=== PATIENT | male | born 1995 | race Hispanic/Latino ===

== ENCOUNTER 2022-01-14 17:03 | Emergency (ER) | payer BC ==
[2022-01-14] MEDS ORDERED: ACETAMINOPHEN 500 MG TAB PO ONE (20:04)
--- NOTE | 2022-01-14 20:58 | XRay Report ---
CHEST 2 VIEWS INDICATION / CLINICAL INFORMATION: Chest Pain. COMPARISON: None available. FINDINGS: SUPPORT DEVICES: None. HEART / MEDIASTINUM: No significant abnormality. LUNGS / PLEURA: No significant pulmonary or pleural abnormality. No pneumothorax. ADDITIONAL FINDINGS: No significant additional findings. IMPRESSION: 1. No acute findings. Signer Name: Marcelo Kerr MD Signed: 01/14/2022 8:53 PM Workstation Name: [email or web address]
[2022-01-14 23:03] LABS: Basophils % (Auto) 0.5 % (0.0-1.8); Eosinophils % (Auto) 0.7 % (0.0-4.3); Hematocrit 46.3 % (35.5-45.6); Hemoglobin 15.5 gm/dl (11.8-15.2); Lymphocytes # (Auto) 0.8 K/mm3 (1.2-5.4); Lymphocytes % (Auto) 12.7 % (13.4-35.0); Mean Corpuscular HGB Conc 33 % (32-34); Mean Corpuscular Volume 87 fl (84-94); Monocytes # (Auto) 0.8 K/mm3 (0.0-0.8); Monocytes % (Auto) 12.7 % (0.0-7.3); Platelet Count 164 K/mm3 (140-440); Red Blood Count 5.31 M/mm3 (3.65-5.03); Red Cell Distribution Width 13.6 % (13.2-15.2)
[2022-01-14 23:12] LABS: BUN/Creatinine Ratio 11; Blood Urea Nitrogen 14 mg/dL (9-20); Calcium 9.5 mg/dL (8.4-10.2); Hemolysis Index 8
--- NOTE | 2022-01-15 07:11 | Event Note ---
ED Screening Note ED Screening Note: 26-year-old male with no significant past medical history presents emerged department complaining of a few day history of waxing and waning fever sensations of associated with lightheadedness and presyncope. 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 He left work and went to [facility] care where he was found to reportedly have a fever which is undocumented associated with tachycardia presyncope and infectious symptom history COVID test was performed was reportedly negative. A chest x-ray was also performed in conjunction with labs however the results are unfounded. He was advised to come to the emergency department to seek definitive treatment for his tachycardia and syncope and possible COVID. This initial assessment/diagnostic orders/clinical plan/treatment(s) is/are subject to change based on patients health status, clinical progression and re- assessment by fellow clinical providers in the ED. Further treatment and workup at subsequent clinical providers discretion. Patient/guardian urged not to elope from the ED as their condition may be serious if not clinically assessed and managed. Initial orders include: D-dimer was elevated which was was ordered prior to my involvement due to this elevation in symptoms we will do a CTA of the chest
--- NOTE | 2022-01-15 08:13 | Emergency Department Report ---
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 However while at work patient had a syncope episode, he was sent to [facility], patient had a fever at the time, sent for COVID which is negative as well as a chest x-ray which was also negative, was told to go to the emergency department for his tachycardia found on EKG and syncope. Patient states he recalls an incident that occurred before and after his syncope episode, reports feeling dizzy with a headache, and also chest pain prior to him passing out. He denies any drug or alcohol use, no shortness of breath, no swelling of the extremities, no vision changes, no focal weakness, no nausea vomiting abdominal pain, no dysuria, no runny nose Severity scale (0 -10): 8 - Related Data Previous Rx's Medication Instructions Recorded Last Taken Type Ibuprofen [Motrin 800 MG tab] 800 mg PO Q8HR PRN #20 tablet 01/15/22 Unknown Rx Allergies Allergy/AdvReac Type Severity Reaction Status Date / Time No Known Allergies Allergy Unverified 01/14/22 19:20 Heart Score - HEART Score History: Moderately suspicious EKG: Non-specific Age: < 45 Risk factors: No known risk factors Troponin: < normal limit HEART Score: 2 - EKG Read Time Time EKG Completed: 19:27 EKG Read Time: 19:30 - Critical Actions Critical Actions: 0-3 pts:0.9-1.7%risk of adverse cardiac event.Candidate for discharge ED Review of Systems ROS: Stated complaint: ABNORMAL EKG Other details as noted in HPI Constitutional: fever, malaise ENT: denies: ear pain, throat pain Respiratory: denies: cough, orthopnea Cardiovascular: chest pain, syncope Endocrine: denies: excessive sweating Gastrointestinal: denies: abdominal pain, nausea, vomiting Genitourinary: as per HPI Neurological: as per HPI, headache ED Past Medical Hx - Past Medical History Previous Medical History?: No - Surgical History Additional Surgical History: Heart surgery at 2 of age - Medications Home Medications: Home Medications Medication Instructions Recorded Confirmed Last Taken Type Ibuprofen [Motrin 800 MG tab] 800 mg PO Q8HR PRN #20 tablet 01/15/22 Unknown Rx ED Physical Exam - General Limitations: No Limitations General appearance: alert, in no apparent distress - Head Head exam: Present: atraumatic - Eye Eye exam: Present: normal appearance Pupils: Present: normal accommodation - ENT ENT exam: Present: normal exam, normal orophraynx - Neck Neck exam: Present: normal inspection. Absent: tenderness - Respiratory Respiratory exam: Present: normal lung sounds bilaterally - Cardiovascular Cardiovascular Exam: Present: regular rate, normal rhythm - GI/Abdominal GI/Abdominal exam: Present: soft. Absent: distended, tenderness - Rectal Rectal exam: Absent: deferred - Extremities Exam Extremities exam: Present: normal inspection, full ROM. Absent: tenderness - Back Exam Back exam: Present: normal inspection, full ROM. Absent: tenderness - Neurological Exam Neurological exam: Present: alert, oriented X3, normal gait - Psychiatric Psychiatric exam: Present: normal affect - Skin Skin exam: Present: warm, dry, intact ED Course Vital Signs 01/14/22 01/14/22 01/15/22 19:17 22:07 08:21 Temperature 102.7 F H 98.7 F 99.5 F Pulse Rate 124 H 85 Respiratory 20 18 Rate Blood Pressure 139/77 117/61 [Right] O2 Sat by Pulse 99 100 Oximetry 01/15/22 09:18 Temperature 100.8 F H Pulse Rate 86 Respiratory 18 Rate Blood Pressure 119/71 [Right] O2 Sat by Pulse 98 Oximetry ED Medical Decision Making - Lab Data Result diagrams: 01/14/22 22:18 01/14/22 22:18 - EKG Data -: EKG Interpreted by [facility] EKG shows normal: sinus rhythm Rate: tachycardia (113) - EKG Data When compared to previous EKG there are: previous EKG unavailable Interpretation: other (Borderline ST elevation in V2, no STEMI) - Radiology Data Radiology results: report reviewed Negative chest X - Medical Decision Making 26-year-old male with no significant cardiac or medical history presents to the emergency department with syncope while at work. Patient found to be febrile here in the emergency department, Chest x-ray CTA his labs are all reassuring, EKG is nonischemic, fever is improving, based on patient's history and symptoms most likely viral pathology i.e. COVID, influenza otherwise is stable to follow-up with cardiology as outpatient patient for further evaluation of his EKG. Heart score of 1, no PEs on his CT no pulmonary edema, no hypotension. No hypoxia. I discussed ED findings with patient including supportive therapy staying home handwashing mask wearing and return precautions. Patient verbalizes everything have discussed and will follow-up as indicated. Critical care attestation.: If time is entered above; I have spent that time in minutes in the direct care of this critically ill patient, excluding procedure time. ED Disposition Clinical Impression: Febrile illness, acute, Contact with and (suspected) exposure to other viral communicable diseases, Syncope Disposition: HOME / SELF CARE / HOMELESS Is pt being admited?: No Does the pt Need Aspirin: No Condition: Stable Instructions: Droplet Precautions, Fever, Adult, [id number], Syncope, Syncope (ED) Prescriptions: Ibuprofen [Motrin 800 MG tab] 800 mg PO Q8HR PRN #20 tablet PRN Reason: Pain , Severe (7-10) Referrals: PRIMARY CAREMD [Primary Care Provider] - 3-5 Days HENRY URBINA MD [Staff Physician] - 3-5 Days Forms: Work/School Release Form(ED)
[2022-01-15 09:19] VITALS: BP 119/71
--- NOTE | 2022-01-15 09:43 | Cat Scan Report ---
CTA chest with contrast INDICATION : chest pain , elevated dimer. TECHNIQUE: Axial imaging performed through the chest, with contrast bolus timing set to maximize opa cification of the pulmonary arteries. 3-plane MIP reformatted images were obtained. All CT scans at this location are performed using CT dose reduction for ALARA by means of automated exposure control. 100 mL of intravenous contrast administered. COMPARISON: Chest x-ray from yesterday FINDINGS: Bolus/PTE: Contrast bolus timing is adequate. No filling defect is present to suggest PTE. Mediastinum: Heart and great vessels appear normal. No pathologic mediastinal adenopathy. Lungs: Minimal streaky left basilar and lingular airspace disease with otherwise clear lungs. No con solidation or pleural effusion. Upper abdomen: Limited imaging of the upper abdomen shows nothing acute. Bones: Degenerative changes in the spine with nothing acute. IMPRESSION: 1. Negative for PTE. 2. Minimal streaky airspace disease in the left lung which could at least in part represent atelectas is. Signer Name: Rick Munoz MD Signed: 01/15/2022 9:39 AM Workstation Name: [id number]
--- NOTE | 2022-01-15 11:18 | Electrocardiograph Report ---
[facility] Test Date: 2022-01-14 Test Time: 19:27:52 Pat Name: CHRIS SILVA Department: Room: Gender: M Grape Picker: [email or web address] : [email or web address] Requested By: FRAN BABCOCK Order Number: [id number] Reading MD: Phillip Tyson Measurements Intervals [place] Rate: 113 P: 35 MA: 136 QRS: 21 QRSD: 78 T: 51 QT: 295 QTc: 404 Interpretive Statements Sinus tachycardia No previous ECG available for comparison Electronically Signed On 01-15-2022 11:18:15 EDT by Phillip Tyson
== END 2022-01-15 12:04 | disposition home or self-care (01) ==
LOC: ED 17:03
DX: R50.9 Fever, unspecified (principal); R55 Syncope and collapse; Z20.828 Contact with and (suspected) exposure to other viral communicable diseases
CPT/HCPCS: 36415; 71046; 71275; 80048; 84484; 85025; 85379; 93005; 99284; Q9967